=== PATIENT | female | born 1990 | race African-American/Black ===

== ENCOUNTER 2020-11-28 18:43 | Emergency (ER) | payer OTHER ==
[~2020-11-28] VITALS: Ht 172.7 cm; Wt 72.6 kg
[2020-11-28 20:14] LABS: CLARITY,URINE SL CLOUDY (CLEAR); COLOR,URINE YELLOW (YELLOW); KETONES,URINE NEGATIVE (NEGATIVE); LEUKOCYTE ESTERASE ,URINE SMALL (NEGATIVE); NITRITE,URINE NEGATIVE (NEGATIVE); PROTEIN,URINE DIPSTICK NEGATIVE (NEGATIVE); URINE UROBILINOGEN 0.2 mg/dL (0.2 - 1)
[2020-11-28 20:26] LABS: BACTERIA,URINE MODERATE /HPF; EPITHELIAL CELLS,URINE MANY /LPF; TRANSITIONAL EPI CELLS,URINE FEW
== END 2020-11-28 22:38 | disposition home or self-care (01) ==
LOC: ER 19:43
DX: O26.91 Pregnancy related conditions, unspecified, first trimester (principal); S62.613A Displaced fracture of proximal phalanx of left middle finger, initial encounter for closed fracture; V43.52XA Car driver injured in collision with other type car in traffic accident, initial encounter; Y92.488 Other paved roadways as the place of occurrence of the external cause
CPT/HCPCS: 76817; 81001; 99283